=== PATIENT | male | born 2000 | race Caucasian/White ===

== ENCOUNTER → 2018-03-28 | Outpatient (CLI) | payer BC ==
--- NOTE | 2018-03-28 16:45 | Diagnostic Imaging Report ---
PROCEDURE: US Thyroid. TECHNIQUE: Multiple real-time grayscale images were obtained of the thyroid in various projections. INDICATION: Thyromegaly. COMPARISON: None. FINDINGS: Right lobe of the thyroid measures 5.2 x 2.2 x 2 cm and the left measures 4.1 x 1.4 x 2.2 cm. Both lobes show diffuse spongiform appearance with multiple small echogenic rounded foci scattered throughout. No dominant nodule or mass is identified. Color-flow images show mild bilateral hyperemia. Isthmus is within normal limits at 4 mm in the AP dimension. IMPRESSION: 1. Mild hyperemic appearance of the thyroid gland. Correlation with underlying thyroiditis is recommended. 2. No focal dominant nodule or mass. Dictated by: Dictated on workstation # [id number]
== END ==
LOC: RAD 14:28
PROVIDERS: ATTEND Internal Medicine
DX: E01.0 Iodine-deficiency related diffuse (endemic) goiter (principal)
CPT/HCPCS: 76536

== ENCOUNTER 2020-04-03 22:49 | Emergency (ER) | payer OTHER, BC ==
[~2020-04-03] VITALS: Ht 182.8 cm; Wt 58.9 kg
[2020-04-03 23:02] VITALS: BP 122/77
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
--- NOTE | 2020-04-03 23:28 | NUR ---
WORK STATUS FORM GIVEN TO PT ON DC.
== END 2020-04-03 23:31 | disposition home or self-care (01) ==
LOC: EDUNIT# 22:49 → ER 22:52
DX: T22.111A Burn of first degree of right forearm, initial encounter (principal); X19.XXXA Contact with other heat and hot substances, initial encounter
CPT/HCPCS: 99282

== ENCOUNTER 2020-11-07 03:53 | Emergency (ER) | payer BC ==
[~2020-11-07] VITALS: Ht 183 cm; Wt 71.0 kg
--- NOTE | 2020-11-07 04:35 | ED Lower Extremity ---
General Chief Complaint: Lower Extremity Stated Complaint: RIGHT BIG TOE INGROWN NAIL Nursing Triage Note: C/O RIGHT BIG TOENAIL PAIN Source: patient Exam Limitations: no limitations History of Present Illness Date Seen by Provider: Nov 07, 2020 Time Seen by Provider: 04:19 Initial Comments Patient to the ER by private conveyance from home with chief complaint of right lateral great toe swelling and small amount of purulent discharge. He trimmed his toenail but it is not getting better. Started 2 days ago. No fevers chills nausea vomiting diarrhea. No history of immunocompromise or bleeding disorders. Allergies and Home Medications Allergies Coded Allergies: amoxicillin (Verified Allergy, Unknown, 04/03/20) clavulanic acid (Verified Allergy, Unknown, 04/03/20) Home Medications Cephalexin 500 Mg Tablet, 500 MG PO QID Prescribed by: ROBYN URBINA on 11/07/20 0600 Hydrocodone/Acetaminophen 1 Each Tablet, 1 TAB PO Q6H PRN for PAIN-MODERATE (5- 7) Prescribed by: ROBYN URBINA on 11/07/20 0601 Patient Home Medication List Home Medication List Reviewed: Yes Review of Systems Constitutional: No chills, No fever EENTM: No ear discharge, No ear pain Respiratory: No cough, No short of breath Cardiovascular: No chest pain, No edema Gastrointestinal: No abdominal pain, No nausea All Other Systems Reviewed Negative Unless Noted: Yes Past Rllakcd-Xljapy-Ezgsgu Hx Patient Social History Tobacco Use?: No Alcohol Use?: Yes Alcohol Frequency: Rarely Pt feels they are or have been: No Immunizations Up To Date Tetanus Booster (TDap): Less than 5yrs Past Medical History Surgeries: Yes Tonsillectomy Respiratory: No Cardiac: No Neurological: No Genitourinary: No Gastrointestinal: No Musculoskeletal: No Endocrine: No HEENT: No Cancer: No Psychosocial: No Integumentary: No Blood Disorders: No Physical Exam Vital Signs Vital Signs - First Documented 11/07/20 04:02 Temp 37.1 Pulse 106 Resp 18 B/P (MAP) 113/65 (81) Pulse Ox 98 O2 Delivery Room Air Capillary Refill : Less Than 3 Seconds Height, Weight, BMI Height: '" Weight: lbs. oz. kg; 21.00 BMI Method: General Appearance: WD/WN, mild distress HEENT: PERRL/EOMI, pharynx normal Cardiovascular: normal peripheral pulses, regular rate, rhythm Respiratory: no respiratory distress, no accessory muscle use Feet: right foot swelling (Great toe medial portion erythematous paronychia) Procedures/Interventions Progress Nail trimming for paronychia. Soak the toe in iodine and allowed to dry. Cleaned with chlorhexidine and sterile saline and physical abrasion. Injected in the usual fashion 1% lidocaine without epinephrine to perform a good toe block. After the toe was adequately anesthetized we then elevated the medial edge of the toenail and freed it on the right great toe. Using scissors we cut down to the base of the nail and removed it. Less than 1 cc of purulence was flushed out and 50 cc of sterile saline was used to flush out the wound. A bulky dry gauze dressing was placed. Patient tolerated the procedure well. Progress/Results/Core Measures Results/Orders My Orders Orders - ROBYN URBINA Lidocaine 1% Inj 20 Ml (Xylocaine 1% Inj (11/07/20 05:15) Medications Given in ED Current Medications Medications Dose Ordered Sig/Kyle Route Start Time Stop Time Status Last Admin Dose Admin Lidocaine HCl 20 ml ONCE ONCE INJ 11/07/20 05:15 11/07/20 05:16 DC 11/07/20 05:13 20 ML Vital Signs/I&O 11/07/20 11/07/20 04:02 06:02 Temp 37.1 36.9 Pulse 106 88 Resp 18 18 B/P (MAP) 113/65 (81) 112/69 (81) Pulse Ox 98 98 O2 Delivery Room Air Room Air Blood Pressure Mean: 81 Departure Impression Primary Impression: Paronychia Disposition: 01 HOME, SELF-CARE Condition: Stable (ERASED) Departure-Patient Inst. Decision time for Depature: 05:57 Referrals: CARLIE NUR DO (PCP) Primary Care Physician FLOYD NUR DNP (Family) Primary Care Physician Patient Instructions: Paronychia (DC) Add. Discharge Instructions: Keep the wound clean with regular soap and water only. Keflex 4 times a day with food and at bedtime for the next 7 days. Return to your doctor sooner if you are having increasing redness swelling pain or discharge from the wound. Tylenol 1000 mg every 8 hours as necessary for pain. Ibuprofen 800 mg every 8 hours necessary for pain. Hydrocodone 1 tablet every 6 hours as necessary for breakthrough pain. Will cause constipation and drowsiness. Do not mix with alcohol. MiraLAX or Colace to keep regular. Bulky dry gauze dressing applied over the wound at least daily or more frequently if it becomes soiled. All discharge instructions reviewed with patient and/or family. Voiced understanding. Scripts Hydrocodone/Acetaminophen (Hydrocodone-Acetamin 5-325 mg) 1 Each Tablet 1 TAB PO Q6H PRN for PAIN-MODERATE (5-7), #12 TAB 0 Refills Prov: ROBYN URBINA 11/07/20 Cephalexin (Cephalexin) 500 Mg Tablet 500 MG PO QID for 7 Days, #28 TAB 0 Refills Prov: ROBYN URBINA 11/07/20 ROBYN URBINA Nov 07, 2020 04:35
[2020-11-07] MEDS ORDERED: LIDOCAINE 1% INJ 20 ML 20 ML VIAL INJ ONE (05:15)
[2020-11-07] MEDS ORDERED: CEPH500T PO (06:00)
[2020-11-07] MEDS ORDERED: ACHD5005 PO (06:00)
[2020-11-07 06:02] VITALS: BP 112/69
== END 2020-11-07 06:06 | disposition home or self-care (01) ==
LOC: EDUNIT# 03:53 → ER 03:56
DX: L03.031 Cellulitis of right toe (principal)